=== PATIENT | female | born 1965 | race Caucasian/White ===

== ENCOUNTER 2017-07-29 21:43 | Emergency (ER) | payer MEDICARE, OTHER ==
[~2017-07-29] VITALS: Ht 165.1 cm; Wt 54.4 kg
[~2017-07-29 21:43] MED LIST: DICL100G16 TP; ZANAFLEX PO
--- NOTE | 2017-07-29 22:21 | NUR ---
DR TUBBS, ESMER MD AT BEDSIDE FOR MSE.
--- NOTE | 2017-07-29 22:38 | NUR ---
PT C/O HEADACHE SINCE 1600 TODAY. STATES PAIN IS SHOOTING, AND RADIATES TO L SIDE OF HEAD. HX OF HEADACHES.
--- NOTE | 2017-07-29 22:43 | NUR ---
PT STATES SHE DOES NOT WANT TO HAVE A CT DUE TO RADIATION EXPOSURE. NOTIFIED.
--- NOTE | 2017-07-29 23:06 | NUR ---
Patient discharged to home in stable conditon. Written and verbal after care instructions given. Patient verbalizes understanding of instructions. PT ambulated from ER w/ steady gait. No distress noted. VSS. Pt took all personal belongings.
[2017-07-29 23:19] VITALS: BP 120/82
== END 2017-07-29 23:20 | disposition home or self-care (01) ==
LOC: ER 21:44
DX: G44.009 Cluster headache syndrome, unspecified, not intractable (principal); F43.9 Reaction to severe stress, unspecified; Z79.899 Other long term (current) drug therapy
CPT/HCPCS: A4663